=== PATIENT | male | born 1985 | race Caucasian/White ===

== ENCOUNTER 2020-05-19 14:17 | Emergency (ER) | payer OTHER, SELFPAY ==
--- NOTE | 2020-05-19 14:21 | ED.SKABFB ---
HPI - Skin/Abscess/Foreign Bdy General Chief complaint: Skin/Abscess/Foreign Body Stated complaint: CYST ON BACK Time Seen by Provider: 05/19/20 14:26 Source: patient and RN notes reviewed Mode of arrival: ambulatory Limitations: no limitations History of Present Illness HPI narrative: 34-year-old male presents with concern for a cyst on his back. Reports he has had a small cyst for more than a year. Reports in the last several days it has become red, swollen, painful, larger. Reports it started draining last night. He denies fever, general malaise, body. MD complaint: abscess/boil Related Data Allergies Allergy/AdvReac Type Severity Reaction Status Date / Time No Known Allergies Allergy Verified 05/19/20 14:23 Review of Systems Review of Systems: Narrative: CONSTITUTIONAL: Denies malaise, chills, sweats, or fever. CARDIOVASCULAR: Denies chest pain, palpitations, or edema. RESPIRATORY: Denies cough or dyspnea. SKIN: Reports red, painful, tender, draining cyst on his back MUSCULOSKELETAL: Denies back pain or myalgia. NEUROLOGIC: Denies numbness, weakness, or headache. All systems reviewed & are unremarkable except as noted in HPI and below PMFSH Comments At time of signature, agree with nursing past medical, surgical, social and family history. There is no relevant family history pertinent to the presenting complaint Exam Narrative: Exam Narrative: GENERAL: Well-appearing, well-nourished, and in no acute distress. HEAD: Normocephalic, atraumatic. EYES: PERRLA, conjunctivae clear ENT: Mucous membranes moist. Oropharynx without edema, erythema or lesions. NECK: Supple. No lymphadenopathy CHEST: Clear to auscultation. No respiratory distress. HEART: Regular rate and rhythm. SKIN: Warm, dry. 5 cm diameter raised abscess noted to the left mid back surrounded by erythema, mild induration. Purulent drainage noted NEURO: Alert and oriented x3. PSYCH: Normal mood and affect Course Course Emergency Course: Patient is aware of diagnosis, understands and agrees to treatment plan. Anticipatory guidance given. Patient agrees to follow-up as directed and is aware of reasons to seek care at the emergency department. Portions of this record may have been created with voice recognition software Vital Signs Vital signs: Vital Signs Temperature 98.2 F 05/19/20 14:27 Pulse Rate 114 H 05/19/20 14:27 Respiratory Rate 20 05/19/20 14:27 Blood Pressure 139/63 05/19/20 14:27 Pulse Oximetry 100 05/19/20 14:27 Temperature 98.2 F 05/19/20 14:27 Pulse Rate 114 H 05/19/20 14:27 Respiratory Rate 20 05/19/20 14:27 Blood Pressure 139/63 05/19/20 14:27 Pulse Oximetry 100 05/19/20 14:27 Reviewed. Pt has been instructed to follow up with his primary care provider within the next week regarding his elevated blood pressure today. Procedures Abscess I/D back: Date of Incision: 05/19/20 Time of Incision: 14:32 Local Anesthetic: lidocaine 1% Amount of anesthesia used (mL): 4 Technique: needle aspiration Amount of fluid expressed (mL): 20 Irrigation: Yes Packing used?: iodoform I&D Results: Pus MDM - Skin/Abscess/Foreign Bdy MDM Narrative Medical decision making narrative: Verbal consent were obtained. The indication for the procedure was clinical suspicion for an abscess. The region was anesthetized with lidocaine. The most fluctuant portion of the abscess was incised with an 11 blade scalpel. The abscess cavity of explored and evacuated, all loculations were broken up with a curved hemostat. The cavity was then packed with packing material and dressed with a clean gauze dressing. I was present for this entire procedure and there were no complications Critical Care Time Critical Care Time Critical Care Time: No Discharge Plan Discharge Clinical Impression: Abscess of skin or subcutaneous tissue Qualifiers: Site of cutaneous abscess: trunk Sit
[2020-05-19 14:27] VITALS: BP 139/63; PULSE 114; RESP 20; TEMP 36.8; O2SAT 100
== END 2020-05-19 15:05 | disposition home or self-care (01) ==
PROVIDERS: Emergency Provider Nurse Practitioner
DX: L02.212 Cutaneous abscess of back [any part, except buttock and flank] (principal)
CPT/HCPCS: 10061; 87070; 87075; 87076; 87205; 99203; G0463

== ENCOUNTER 2020-05-21 14:31 | Emergency (ER) | payer OTHER, SELFPAY ==
[2020-05-21 14:40] VITALS: BP 138/82; PULSE 65; RESP 16; TEMP 37.1; O2SAT 100
--- NOTE | 2020-05-21 14:41 | ED.GENADULT ---
HPI - General Adult General Chief complaint: Skin/Abscess/Foreign Body Stated complaint: remove packing Time Seen by Provider: 05/21/20 14:41 Source: patient and RN notes reviewed Mode of arrival: ambulatory Limitations: no limitations History of Present Illness HPI narrative: 34-year-old male presents with complaints of previous drained abscess to left upper back and packing inserted 2 days ago. Ozzie reports returning to have packing removed, spouse felt uncomfortable doing it and he is unable to reach it. Tender to touch. History of skin lesion to upper back. Ozzie reports healing in area and following previous discharge instructions as given. No fever or chills. No abdominal pain, nausea, and vomiting. Tolerating po intake well. Remains active. The patient reports he have not been diagnosed with COVID-19. The patient reports he received 1 dose of COVID-19 vaccine and waiting for his second dose. The patient reports he is not waiting for the results of a COVID-19 lab test. The patient reports he do not have weakness or fatigue. The patient reports he do not have a new or worsening cough or shortness of breath. Denies chest pain. The patient reports he do not have any rhinorrhea, congestion, loss of taste or smell, sore throat, and diarrhea. Denies recent traveling. Denies concerns for COVID-19 or exposures been home with limited outdoor exposure except for essential household needs, work, and return home. At this time, patient is not suspected of having COVID-19. Some parts of this dictation were generated by voice recognition software and may contain typographical and/or grammatical inaccuracies. Related Data Allergies Allergy/AdvReac Type Severity Reaction Status Date / Time No Known Allergies Allergy Verified 05/21/20 14:32 Review of Systems Review of Systems: Narrative: CONSTITUTIONAL: Denies fever, chills, sweats. EYES: Denies visual changes, redness, discharge. ENT: Denies rhinorrhea, congestion, sore throat, otalgia. CARDIOVASCULAR: Denies chest pain, palpitations, edema. RESPIRATORY: Denies dyspnea, wheezing, cough. GASTROINTESTINAL: Denies abdominal pain, nausea, vomiting, diarrhea. SKIN: Denies rash or itching. Left shoulder blade packing needing removed from former cyst I&D area. MUSCULOSKELETAL: Denies acute back pain, joint pain, or myalgia. NEUROLOGIC: Denies numbness or focal weakness. PSYCHIATRIC: Denies anxiety or depression. All systems reviewed & are unremarkable except as noted in HPI and below. [facility] Past Medical History Medical History (Updated 05/22/20 @ 00:00 by Jonh Mckeon) No significant past medical history Surgical History Surgical History (Updated 05/21/20 @ 14:59 by YASMEEN Leon) No significant past surgical history Family History Family History (Updated 05/21/20 @ 15:00 by YASMEEN Leon) Father Alive and well Mother Alive and well Social History Social History (Updated 05/21/20 @ 15:00 by YASMEEN Leon) Smoking status: Never smoker Tobacco type: cigarettes Second hand tobacco smoke exposure: No Alcohol intake: current Substance use: never Substance use type: does not use Living arrangements: with family Additional living arrangements comments: spouse Occupation/Education: occupation Gender identity (if verbalized by the patient): Male Sexual Orientation (if Verbalized by the Patient): Straight or Heterosexual Comments At time of signature, I have reviewed and agree with nursing past medical, surgical, social, and family history. Please see nursing chart for further information. There is no relevant family history pertinent to the presenting complaint. Exam Narrative: Exam Narrative: GENERAL: This is a well-nourished, well-developed patient, in no apparent distress. Talking in full sentences without deficit and ambulate with steady gait without dyspnea. HEAD: Normocephalic, atraumatic. EYES: PER
== END 2020-05-21 15:06 | disposition home or self-care (01) ==
PROVIDERS: Emergency Provider Nurse Practitioner Family
DX: Z48.01 Encounter for change or removal of surgical wound dressing (principal)
CPT/HCPCS: 99211; G0463